=== PATIENT | female | born 1975 | race Caucasian/White ===

== ENCOUNTER 2018-07-05 10:28 | Day surgery (SDC) | payer MEDICAID ==
[~2018-07-05 10:28] MED LIST: Lidocaine 2% 5 ML SDV ONE; Midazolam 1 MG/ML 2 ML SDV ONE
[2018-07-05] MEDS ORDERED: Lactated Ringers 1,000 ML IV SCH (11:00)
[2018-07-05] MEDS ORDERED: Propofol 200 MG/20 ML SDV ONE (11:01)
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
[2018-07-05] MEDS ORDERED: Benzocaine 20% Topical Spray UD MUCMEM ONE (11:39)
[2018-07-05] MEDS ORDERED: Ondansetron 4 MG/2 ML SDV IVPUSH PRN (12:13)
[2018-07-05] MEDS ORDERED: Sodium Chloride 0.9% 2.5 ML Syringe FLUSH PRN (12:13)
[2018-07-05] MEDS ORDERED: Sodium Chloride 0.9% 10 ML Syringe FLUSH PRN (12:13)
--- NOTE | 2018-07-05 12:24 | PCM.OPNOTE ---
- General Post-Op/Procedure Note Date of Surgery/Procedure: 07/05/18 Operative Procedure(s): Esophagogastroduodenoscopy with gastric biopsies and gastric polypectomy Pre Op Diagnosis: Progressive dysphagia Post-Op Diagnosis: Mild gastritis. Gastric polyps. Anesthesia Technique: MAC (ASA III) Primary Surgeon: Josemanuel Hernandez Manager Assisted Living: [facility] Condition: Good Free Text/Narrative:: DICTATION 707630 CPT CODE 90727
--- NOTE | 2018-07-05 12:24 | PCM.POSTAN ---
POST ANESTHESIA ASSESSMENT - MENTAL STATUS Mental Status: Alert, Oriented - RESPIRATORY Respiratory Status: Respiratory Rate WNL, Airway Patent, O2 Saturation Stable - CARDIOVASCULAR CV Status: Pulse Rate WNL, Blood Pressure Stable - GASTROINTESTINAL GI Status: No Symptoms - PAIN Pain Score: 0 - POST OP HYDRATION Hydration Status: Adequate & Stable
--- NOTE | 2018-07-05 12:39 | PCM48HPAN ---
Post Anesthesia Note - EVALUATION WITHIN 48HRS OF ANESTHETIC Vital Signs in Normal Range: Yes Patient Participated in Evaluation: Yes Respiratory Function Stable: Yes Airway Patent: Yes Cardiovascular Function Stable: Yes Hydration Status Stable: Yes Pain Control Satisfactory: Yes Nausea and Vomiting Control Satisfactory: Yes Mental Status Recovered: Yes Resp Rate: 16
--- NOTE | 2018-07-05 18:44 | OR ---
SURGEON: Josemanuel Hernandez M.D. DATE OF PROCEDURE: 07/05/2018 OPERATION PERFORMED: Esophagogastroduodenoscopy with gastric biopsies. PREOPERATIVE DIAGNOSIS: Progressive dysphagia. POSTOPERATIVE DIAGNOSIS: Progressive dysphagia. ESTIMATED BLOOD LOSS: Minimal ASA CLASSIFICATION: III. DESCRIPTION OF PROCEDURE: The patient was taken to the endoscopy room, positioned on the endoscopy table in the supine position. Time-out was called for appropriate identification of the patient and procedure. Monitored anesthesia care was provided. The bite block was placed between the patient's teeth. The gastroscope was inserted through the bite block and advanced without difficulty through the esophagus and stomach into the duodenum where examination was carried out in a retrograde fashion. The duodenum showed no acute inflammatory changes or ulcerations. The stomach does show mild antral gastritis. Biopsies were obtained to look for the presence of Helicobacter pylori. The gastric polyps were identified primarily along the greater curvature and biopsies of this area were obtained as well. The gastroscope was retroflexed to visualize the proximal stomach and cardia. No hiatal hernia was noted. The gastroscope was then straightened and slowly withdrawn aspirating the stomach as the scope was withdrawn. No hiatal hernia was present. The esophagus itself demonstrated good contractility. No mid or proximal lesions were identified. There was certainly no stricture. The vocal cords were visualized as the scope was withdrawn and noted to move symmetrically. The gastroscope was then removed with the patient having tolerated the procedure well. She was taken to recovery room in stable condition. SHERITA / LORA /[id number]
== END 2018-07-05 12:45 | disposition home or self-care (01) ==
LOC: MW.SDS 10:28
PROVIDERS: ATTEND Surgery
DX: R13.10 Dysphagia, unspecified (principal); K31.7 Polyp of stomach and duodenum; K29.70 Gastritis, unspecified, without bleeding; J45.909 Unspecified asthma, uncomplicated; F41.9 Anxiety disorder, unspecified; F32.9 Major depressive disorder, single episode, unspecified; E04.9 Nontoxic goiter, unspecified; E03.9 Hypothyroidism, unspecified; Z79.899 Other long term (current) drug therapy; Z88.8 Allergy status to other drugs, medicaments and biological substances; Z91.041 Radiographic dye allergy status; Z88.6 Allergy status to analgesic agent; Z88.5 Allergy status to narcotic agent; Z91.030 Bee allergy status; Z91.013 Allergy to seafood
CPT/HCPCS: 43239; 81025; 88305; 88312; A9270; J2250; J2704; 00731

== ENCOUNTER 2018-07-05 20:57 | Observation (INO) | payer MEDICAID ==
[2018-07-05] MEDS ORDERED: Aspirin 81 MG Tab.Chew PO ONE (21:06)
[2018-07-05] MEDS ORDERED: Nitroglycerin 0.4 MG Tab.SL SL ONE (21:06)
[2018-07-05] MEDS ORDERED: Sodium Chloride 0.9% 1,000 ML IV ONE (21:06)
[2018-07-05] MEDS ORDERED: Sodium Chloride 0.9% 2.5 ML Syringe FLUSH PRN ×2 (21:06)
[2018-07-05] MEDS ORDERED: Sodium Chloride 0.9% 10 ML Syringe FLUSH PRN (21:06)
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
[2018-07-05 21:56] LABS: CHLORIDE,CL 102 mmol/L (98-107); SODIUM,NA 136 mmol/L (136-145)
[2018-07-05] MEDS ORDERED: HYDROmorphone 1 MG/ML Syringe IVPUSH ONE ×2 (21:59→22:42)
[2018-07-05] MEDS ORDERED: Iopamidol 755 Mg/ML 100 ML Bottle IVPUSH ONE (22:37)
[2018-07-05] MEDS ORDERED: diphenhydrAMINE 50 MG/ML SDV IVPUSH ONE (23:41)
[2018-07-06] MEDS ORDERED: Morphine 2 MG/ML Syringe IVPUSH PRN (01:32)
[2018-07-06] MEDS ORDERED: Acetaminophen 325 MG Tab PO PRN (01:33)
[2018-07-06] MEDS ORDERED: Diazepam 5 MG Tab PO PRN (01:34)
[2018-07-06] MEDS ORDERED: Acetaminophen/HYDROcodone 325-10 MG Tab PO PRN (01:34)
[2018-07-06] MEDS ORDERED: traZODone 50 MG Tab PO PRN (01:35)
[2018-07-06] MEDS ORDERED: Levothyroxine 100 MCG Tab PO SCH (07:30)
[2018-07-06] MEDS ORDERED: Levothyroxine 25 MCG Tab PO SCH (07:30)
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
--- NOTE | 2018-07-06 14:24 | CT ---
EXAM DATE: 07/05/18 PATIENT'S AGE: 43 Patient: ROLANDO MON Facility: [place], [place] Site . Site : 1975 Study: CT Abdomen/Pelvis w/ cont [id number]/2018 10:36:55 PM Ordering Physician: Pedro Luis Dick Final Report: INDICATION: Endoscopy done this morning for difficulty swallowing, now has chest pain and tightness TECHNIQUE: CT Abdomen and pelvis with i.v. contrast. Coronal and sagittal reformats were obtained. CONTRAST: 100 mL Isovue 370 COMPARISON: None FINDINGS: Lower chest: Unremarkable. Liver: Unremarkable. Spleen: Unremarkable. Pancreas: Unremarkable. Gallbladder: Unremarkable. Kidney: Unremarkable. No kidney or ureteral stones or obstruction seen. Adrenal: Unremarkable. Bowel: Moderate amount of stool is present throughout the colon which may be due to chronic constipation. The appendix is at the upper limits of normal in size, measuring 6-7 mm in diameter without wall thickening or surrounding inflammatory changes. Vascular: Unremarkable. Lymph: Unremarkable. Peritoneum: Unremarkable. No pneumoperitoneum is seen. No significant ascites is noted. Pelvis: Unremarkable. Soft tissue: Unremarkable. Bone: Unremarkable for age. IMPRESSION: 1. The appendix is at the upper limits of normal in size, measuring 6-7 mm in diameter without wall thickening or surrounding inflammatory changes. This is indeterminate by imaging and clinical followup is recommended. Dictated by Jose Cobb MD @ 07/05/2018 10:49:00 PM Please note that all CT scans at this facility use dose modulation, iterative reconstruction, and/or weight-based dosing when appropriate to reduce radiation dose to as low as reasonably achievable. Dictated by: Jose Cobb MD @ 07/05/2018 22:49:05 (Electronic Signature) Report Signed by Proxy. [facility]ITAL[facility]
--- NOTE | 2018-07-06 14:26 | CR ---
EXAM DATE: 07/05/18 PATIENT'S AGE: 43 Patient: ROLANDO MON Facility: [place], [place] Site . Site : 1975 Study: XRay Chest [id number]/13/2018 10:53:58 PM Ordering Physician: Doctor Koenig Final Report: INDICATION: Chest pain and tightness x3 hours. TECHNIQUE: Chest 1 view. COMPARISON: None. FINDINGS: Cardiovascular and mediastinum: Heart size and vasculature are normal in caliber and appearance. Mediastinum is within normal limits. Lungs and pleural spaces: Lungs are clear. No sign of infiltrate or mass. No sign of pleural effusion. No pneumothorax. Bones and soft tissues: No significant findings. IMPRESSION: Unremarkable chest. Dictated by: Vamshi Park MD @ 07/05/2018 22:59:28 (Electronic Signature) Report Signed by Proxy. SANDRA
--- NOTE | 2018-07-06 14:36 | CT ---
EXAM DATE: 07/05/18 PATIENT'S AGE: 43 Patient: ROLANDO MON Facility: [place], [place] Site . Site : 1975 Study: CT ST Neck ORAL CONTRAST [id number]/14/2018 1:06:00 AM Ordering Physician: Deandre Hernández Final Report: INDICATION: Clinical suspicion for esophageal perforation status post EGD TECHNIQUE: CT soft tissue of the neck was acquired with foul IV contrast. Oral contrast administered. COMPARISON: None FINDINGS: Skull base: Unremarkable. Pharynx: Unremarkable. Larynx and trachea: Unremarkable. Salivary glands: Unremarkable. Thyroid gland: Enlarged right lobe of the thyroid gland. Vessels: Unremarkable for age. Bones: Anterior spinal fixation hardware C4 through C6. Misc: No mass or lymphadenopathy. Lung apices: Unremarkable. IMPRESSION: No evidence for esophageal perforation in the neck or visualized portions of the upper chest. Enlarged right lobe of the thyroid gland. Findings discussed with Dr. Cloud on 07/06/2018 at 1:14 a.m. Dictated by Vamshi Park MD @ 07/06/2018 1:15:59 AM Please note that all CT scans at this facility use dose modulation, iterative reconstruction, and/or weight-based dosing when appropriate to reduce radiation dose to as low as reasonably achievable. Dictated by: Vamshi Park MD @ 07/06/2018 01:16:08 (Electronic Signature) Report Signed by Proxy. [facility]
--- NOTE | 2018-07-06 14:37 | CT ---
EXAM DATE: 07/05/18 PATIENT'S AGE: 43 Patient: ROLANDO MON Facility: [place], [place] Site . Site : 1975 Study: CT Chest ORAL CONTRAST [id number]/14/2018 1:07:10 AM Ordering Physician: Deandre Hernández Final Report: INDICATION: Concern for esophageal perforation status post EGD. TECHNIQUE: CT chest was acquired without IV contrast. Oral contrast administered COMPARISON: None FINDINGS: Cardiovascular structures: Heart size is normal. Thoracic aorta and main pulmonary artery are normal in caliber. Mediastinum and emanuel: No mass or adenopathy. Enlarged right lobe of the thyroid and possibly the left lobe. Lungs: Clear. Pleura and pericardium: No effusions. Chest wall and axilla: No mass or adenopathy. Bones: No significant findings. Upper abdomen: No contrast identified within the stomach. IMPRESSION: No evidence for esophageal perforation including pneumomediastinum or evidence of extravasation of oral contrast into the mediastinum. Findings discussed at 07/06/18 at 21:14 a.m. with . Enlarged right lobe of thyroid gland possibly the left. Dictated by Vamshi Park MD @ 07/06/2018 1:21:54 AM Please note that all CT scans at this facility use dose modulation, iterative reconstruction, and/or weight-based dosing when appropriate to reduce radiation dose to as low as reasonably achievable. Dictated by: Vamshi Park MD @ 07/06/2018 01:22:04 (Electronic Signature) Report Signed by Proxy. [facility]
== END 2018-07-06 14:55 | disposition home or self-care (01) ==
LOC: MW.ED 20:57 → MW.MS 23:18
PROVIDERS: ADMIT Internal Medicine; ATTEND Internal Medicine
DX: R07.89 Other chest pain (principal); J45.909 Unspecified asthma, uncomplicated; Z79.899 Other long term (current) drug therapy; F41.9 Anxiety disorder, unspecified; F32.9 Major depressive disorder, single episode, unspecified; E03.9 Hypothyroidism, unspecified; Q96.9 Turner's syndrome, unspecified; Z88.8 Allergy status to other drugs, medicaments and biological substances; Z91.041 Radiographic dye allergy status; Z91.013 Allergy to seafood; Z88.6 Allergy status to analgesic agent
CPT/HCPCS: 36415; 70490; 71045; 71250; 74177; 80053; 81001; 81025; 83690; 84484; 85025; 85610; 93005; 96361; 96374; 96375; 96376; 99285; A9270; G0378; J1170; J1200; J2270; J7040; Q9967